=== PATIENT | male | born 1930 | race Caucasian/White ===

== ENCOUNTER 2016-12-14 11:02 | Emergency (ER) | payer MEDICARE ==
[~2016-12-14] VITALS: Ht 167.6 cm; Wt 75.0 kg
[2016-12-14 12:09] LABS: HEMATOCRIT. 33.4 % (42.0-52.0); HEMOGLOBIN. 11.8 g/dL (14.0-18.0); MEAN CORPUSCULAR HEMOGLOBIN 34.5 pg (28.0-32.0); MEAN CORPUSCULAR VOLUME 97.4 fL (80.0-94.0); MEAN PLATELET VOLUME 7.9 fl (7.4-10.4); PLATELET 107 x1000/uL (130-400); RED BLOOD CELL COUNT 3.43 mill/uL (4.7-6.1); RED CELL DISTRIBUTION WIDTH 16.1 % (11.6-14.6)
[2016-12-14 12:18] LABS: INR 1.3; PROTHROMBIN TIME 13.1 sec
[2016-12-14 12:24] LABS: CARBON DIOXIDE 28 mEq/L (21-32); CHLORIDE 95 mEq/L (98-107); TROPONIN I < 0.02 ng/mL (0.00-0.04)
[2016-12-14 12:51] LABS: PLATELET ESTIMATE NORMAL
[2016-12-14 13:45] VITALS: BP 139/90
[2016-12-14] MEDS ORDERED: LEVOFLOXACIN 250MG TABLET PO ONE (14:00)
[2016-12-14 14:35] LABS: *AMPHETAMINES SCREEN URINE NEGATIVE (NEGATIVE); *BARBITURATES SCREEN URINE NEGATIVE (NEGATIVE); *BENZODIAZEPINES SCREEN URINE NEGATIVE (NEGATIVE); *COCAINE SCREEN URINE NEGATIVE (NEGATIVE); CANNABINOID URINE SCREEN NEGATIVE (NEGATIVE); METHADONE URINE SCREEN NEGATIVE (NEGATIVE); OPIATES URINE SCREEN NEGATIVE (NEGATIVE); PHENCYCLIDINE URINE SCREEN NEGATIVE (NEGATIVE)
== END 2016-12-14 15:32 | disposition home or self-care (01) ==
LOC: ER 11:03 → CANBEDREQ 15:19 → ER 15:32
DX: J18.9 Pneumonia, unspecified organism (principal); E11.9 Type 2 diabetes mellitus without complications
CPT/HCPCS: 36415; 71010; 80048; 80305; 83880; 84484; 85025; 85610; 93005; 99285

== ENCOUNTER 2016-12-14 16:17 | Emergency (ER) | payer MEDICARE ==
[~2016-12-14] VITALS: Ht 172.7 cm; Wt 70.0 kg
[2016-12-14 16:26] VITALS: BP 145/82
== END 2016-12-14 19:05 | disposition left against medical advice (07) ==
LOC: ER 19:03
DX: R07.9 Chest pain, unspecified (principal); Z53.21 Procedure and treatment not carried out due to patient leaving prior to being seen by health care provider
CPT/HCPCS: 82962; 93005